=== PATIENT | male | born 1960 | race African-American/Black ===

== ENCOUNTER 2018-09-17 11:29 | Inpatient (IN) | payer MEDICAID ==
[~2018-09-17] VITALS: Ht 172.7 cm; Wt 85.0 kg
[2018-09-17 11:45] VITALS: BP 212/119
[2018-09-17 11:58] LABS: BASOPHILS 0.2 % (0-2); EOSINOPHILS 0.6 % (0-7); HEMATOCRIT 40.3 % (42.0-54.0); HEMOGLOBIN 13.7 g/dL (13.5-17.5); IMMATURE GRANULOCYTES 0.2 % (0-5); LYMPHOCYTES 23.7 % (15-50); MCH 28.3 pg (26.0-34.0); MCV 83.3 fL (80.0-100.0); MEAN PLATELET VOLUME 10.2 fL (7.4-10.4); MONOCYTES 7.8 % (2-11); NEUTROPHILS 67.5 % (40-80); PLATELET COUNT 285 10x3/uL (130-400); RBC 4.84 10x6/uL (4.20-6.10); RDW 13.6 % (11.5-14.5); WBC 12.6 10x3/uL (4.8-10.8)
[2018-09-17 12:08] LABS: APTT 28.1 SECONDS (22.8-39.4); INR 1.04 (0.85-1.17); PROTIME 13.1 SECONDS (11.6-15.0)
[2018-09-17 12:11] LABS: ALBUMIN 3.8 g/dL (3.4-5.0); ALKALINE PHOSPHATASE 89 U/L (46-116); ALT (SGPT) 41 U/L (10-68); BILIRUBIN - TOTAL 0.76 mg/dL (0.2-1.3); CALC OSMOLALITY 282 mosm/kg (275-300); CALCIUM 9.3 mg/dL (8.5-10.1); CARBON DIOXIDE 23.4 mmol/L (21.0-32.0); CHLORIDE - SERUM 103 mmol/L (98-107); CREATININE - SERUM 1.2 mg/dL (0.6-1.3); GLUCOSE 120 mg/dL (74-106); POTASSIUM - SERUM 3.2 mmol/L (3.5-5.1); PROTEIN - SERUM 8.1 g/dL (6.4-8.2); SODIUM 141 mmol/L (136-145); UREA NITROGEN 15 mg/dL (7-18); eGFR NON AFRICAN AMERICAN 66 mL/min (90-120)
[2018-09-17 12:29] LABS: CKMB 13.9 U/L (0.0-3.6); MAGNESIUM - SERUM 2.2 mg/dL (1.8-2.4)
[2018-09-17 12:33] LABS: CREATINE KINASE 4916 UL (21-232)
[2018-09-17 12:35] LABS: TROPONIN-I 0.601 ng/mL (0.000-0.060)
--- NOTE | 2018-09-17 12:35 | NUR ---
NOTIFIED BY LAB OF [facility] OF 0.601. TREATING PROVIDER NOTIFIED.
--- NOTE | 2018-09-17 14:30 | NUR ---
RECEIVED PT VIA W/C FROM ER AAOX4 DENIES ANY NEEDS OR DISCOMFORT AT THIS TIME RESP UNLABORED PRODUCTIVE COUGH NOTED THICK GREEN SPUTUM NOTED WILL CONTINUE TO MONITOR
[2018-09-17 14:43] VITALS: BMI 28.4
[2018-09-17 16:09] VITALS: Ht 172.7 cm; Wt 85.0 kg
--- NOTE | 2018-09-17 16:47 | MORECARE ---
CASE MANAGEMENT DISCHARGE SUMMARY PATIENT: REJI QUINTERO UNIT: [id number] ADM DATE: 09/17/18 AGE: 58 : 64 SEX: M ROOM/BED: D.2128 AUTHOR: MARIAM MARIEE PHYSICIAN: REFERRING PHYSICIAN: OLIVE MARTINO MD DATE OF SERVICE: 09/17/18 Discharge Plan Patient Name: REJI QUINTERO [facility] : 1960 Planned Disposition: Home Anticipated Discharge Date: 09/20/18 Discharge Date: Expected LOS: 3 Initial Reviewer: [email or web address] Initial Review Date: 09/17/2018 Generated: 09/17/18 5:46 pm DCPIA - Discharge Planning Initial Assessment Updated by [email or web address]: Ruth Buckley on 09/17/18 4:45 pm * Is the patient Alert and Oriented? Yes * How many steps to enter\exit or inside your home? None * PCP Does not have a PCP * Pharmacy [facility] * Preadmission Environment Home with Family * ADLs Independent * Equipment None * List name and contact numbers for known caregivers / representatives who currently or will assist patient after discharge: Monet Wooten - - [phone] * Verbal permission to speak to the caregivers and representatives has been obtained from the patient. Yes * Community resources currently utilized None * Additional services required to return to the preadmission environment? No * Can the patient safely return to the preadmission environment? Yes * Has this patient been hospitalized within the prior 30 days at any hospital? No Patient Name: REJI QUINTERO Page [id number] at 1647 All edits/amendments must be made on the electronic document DICTATION DATE: 09/17/181645 MERCHANDISING DIRECTOR: JAZMÍN 09/17/181645 RPT#: [id number] DC DATE: STATUS: ADM IN [facility] [address] [place] [address] END OF REPORT
--- NOTE | 2018-09-17 16:56 | MORECARE ---
CASE MANAGEMENT DISCHARGE SUMMARY PATIENT: REJI QUINTERO UNIT: [id number] ADM DATE: 09/17/18 AGE: 58 : 64 SEX: M ROOM/BED: D.6898 AUTHOR: JAYLENE,DOC PHYSICIAN: REFERRING PHYSICIAN: OLIVE MARTINO MD DATE OF SERVICE: 09/17/18 Discharge Plan Patient Name: REJI QUINTERO Facility: [facility]:[place] : 1960 Planned Disposition: Home Anticipated Discharge Date: 09/20/18 Discharge Date: Expected LOS: 3 Initial Reviewer: [email or web address] Initial Review Date: 09/17/2018 Generated: 09/17/18 5:56 pm DCP- Discharge Planning Updated by [email or web address]: Ruth Buckley on 09/17/18 3:[address] Patient Name: REJI QUINTERO Admission Status: ER Accout number: [id number] Admission Date: 09-17-2018 : 1960 Admission Diagnosis: Attending: OLIVE MARTINO Current LOS: 1 Anticipated DC Date: 09-20-2018 Planned Disposition: Home Primary Insurance: MEDICAID [place] Discharge Planning Comments: CM met with patient and his Monet to complete initial dc planning assessment. CM educated patient on the CM role and verbal consent given by patient to complete assessment. Patient lives at home with his independently. At discharge patient plans to return home and feels this is a safe discharge. CM discussed availability of home health, rehab services, and medical equipment. Patient denied known discharge needs at this time. CM provided patient handouts/resources for drug rehab programs. The patient stated "I just got to stop on my own". CM will continue to follow and will assist as needed with dc plans/needs. Technical Sales Support Specialist: Ruth Buckley RN, [facility] DCPIA - Discharge Planning Initial Assessment Updated by [email or web address]: Ruth Buckley on 09/17/18 4:45 pm * Is the patient Alert and Oriented? Yes * How many steps to enter\\exit or inside your home? None * PCP Does not have a PCP * Pharmacy [facility] * Preadmission Environment Home with Family * ADLs Independent * Equipment None * List name and contact numbers for known caregivers / representatives who currently or will assist patient after discharge: Monet Wooten - - [phone] * Verbal permission to speak to the caregivers and representatives has been obtained from the patient. Yes * Community resources currently utilized None * Additional services required to return to the preadmission environment? No * Can the patient safely return to the preadmission environment? Yes * Has this patient been hospitalized within the prior 30 days at any hospital? No Last DP export: 09/17/18 3:46 pm Patient Name: REJI QUINTERO Page [id number] at 1656 All edits/amendments must be made on the electronic document DICTATION DATE: 09/17/181655 [employer] OPERATOR: JAZMÍN 09/17/181655 RPT#: [id number] DC DATE: STATUS: ADM IN [facility] [address] [place] [address] END OF REPORT
[2018-09-17 17:06] VITALS: BP 203/108
--- NOTE | 2018-09-17 19:51 | NUR ---
RESUMED CARE OF PT, LYING IN BED RESPIRATIONS EVEN AND UNLABORED ON ROOM AIR. LEFT WRIST INFUSINS LR @ 125. 100 SR ON TELEMETRY. CALL LIGHT IN REACH. SEE NURSE ASSESSMENT.
[2018-09-17 20:00] VITALS: BP 132/75
[2018-09-18] VITALS: BP 133/74
[2018-09-18 04:56] LABS: BASOPHILS 0.1 % (0-2); EOSINOPHILS 1.5 % (0-7); HEMATOCRIT 36.4 % (42.0-54.0); HEMOGLOBIN 12.2 g/dL (13.5-17.5); IMMATURE GRANULOCYTES 0.2 % (0-5); LYMPHOCYTES 29.7 % (15-50); MCHC 33.5 g/dL (31.0-37.0); MCV 83.5 fL (80.0-100.0); MEAN PLATELET VOLUME 10.5 fL (7.4-10.4); MONOCYTES 9.6 % (2-11); NEUTROPHILS 58.9 % (40-80); PLATELET COUNT 270 10x3/uL (130-400); RBC 4.36 10x6/uL (4.20-6.10); RDW 13.3 % (11.5-14.5)
[2018-09-18 05:02] LABS: WBC 8.1 10x3/uL (4.8-10.8)
[2018-09-18 05:20] VITALS: BP 124/65
[2018-09-18 05:42] LABS: ALKALINE PHOSPHATASE 68 U/L (46-116); ALT (SGPT) 35 U/L (10-68); CALCIUM 8.2 mg/dL (8.5-10.1); CARBON DIOXIDE 23.6 mmol/L (21.0-32.0); CHLORIDE - SERUM 103 mmol/L (98-107); CREATININE - SERUM 1.1 mg/dL (0.6-1.3); GLUCOSE 77 mg/dL (74-106); MAGNESIUM - SERUM 1.9 mg/dL (1.8-2.4); PHOSPHOROUS 3.4 mg/dL (2.5-4.9); POTASSIUM - SERUM 3.5 mmol/L (3.5-5.1); PROTEIN - SERUM 6.7 g/dL (6.4-8.2); SODIUM 139 mmol/L (136-145); eGFR NON AFRICAN AMERICAN 73 mL/min (90-120)
[2018-09-18 05:43] LABS: CALC OSMOLALITY 275 mosm/kg (275-300); CKMB 9.1 U/L (0.0-3.6); CREATINE KINASE 2350 UL (21-232); UREA NITROGEN 11 mg/dL (7-18)
[2018-09-18 06:56] LABS: UDS - AMPHET POSITIVE QUAL (NEGATIVE); UDS - BARB NEGATIVE QUAL (NEGATIVE); UDS - BENZO NEGATIVE QUAL (NEGATIVE); UDS - COCAINE POSITIVE QUAL (NEGATIVE); UDS - OPIATE NEGATIVE QUAL (NEGATIVE); UDS - PCP NEGATIVE QUAL (NEGATIVE); UDS - THC NEGATIVE QUAL (NEGATIVE)
--- NOTE | 2018-09-18 07:30 | NUR ---
RECEIVED PT IN BED EYES CLOSED RESP UNLABORED NAD NOTED WILL CONTINUE TO MONITOR
[2018-09-18 08:29] LABS: APPEARANCE CLEAR (CLEAR); BILIRUBIN NEGATIVE (NEGATIVE); COLOR YELLOW (YELLOW); GLUCOSE NEGATIVE (NEGATIVE); KETONE SMALL mg/dL (NEGATIVE); NITRITE NEGATIVE (NEGATIVE); PROTEIN NEGATIVE (NEGATIVE); UROBILINOGEN NORMAL (NORMAL)
[2018-09-18 09:17] VITALS: BP 147/85
[2018-09-18 11:46] VITALS: BP 124/72
--- NOTE | 2018-09-18 15:10 | NUR ---
PT AGREED TO WEAR SCDs APPLIED AND WORKING AT THIS TIME
[2018-09-18 15:46] VITALS: BP 127/74
[2018-09-18 20:00] VITALS: BP 146/81
--- NOTE | 2018-09-18 20:57 | NUR ---
HS MEDS GIVEN WITH FRESH ICE WATER. PT DENIES PAIN OR NEEDS. BED LOW, CL IN REACH.
[2018-09-19] VITALS: BP 117/66
--- NOTE | 2018-09-19 03:42 | NUR ---
PT ASLEEP. RESP EVEN AND UNLABORED. FAMILY AT BEDSIDE. NO S/S OF DISTRESS. NS INFUSING 125 ORDERED. BEDLOW AND CALL LIGHT IN REACH. WILL CPOC
[2018-09-19 04:00] VITALS: BP 122/80
--- NOTE | 2018-09-19 04:22 | NUR ---
RESTING WITH EYES CLOSED, RESPERATOINS EVEN, NO S/S DISTRESS NOTED.
[2018-09-19 06:09] LABS: BASOPHILS 0.3 % (0-2); EOSINOPHILS 2.8 % (0-7); HEMATOCRIT 35.6 % (42.0-54.0); HEMOGLOBIN 11.7 g/dL (13.5-17.5); IMMATURE GRANULOCYTES 0.3 % (0-5); LYMPHOCYTES 34.2 % (15-50); MCH 27.7 pg (26.0-34.0); MCHC 32.9 g/dL (31.0-37.0); MCV 84.4 fL (80.0-100.0); MEAN PLATELET VOLUME 10.5 fL (7.4-10.4); MONOCYTES 10.4 % (2-11); PLATELET COUNT 264 10x3/uL (130-400); RBC 4.22 10x6/uL (4.20-6.10); RDW 13.3 % (11.5-14.5); WBC 7.2 10x3/uL (4.8-10.8)
[2018-09-19 06:42] LABS: ALBUMIN 2.9 g/dL (3.4-5.0); ALKALINE PHOSPHATASE 68 U/L (46-116); ALT (SGPT) 31 U/L (10-68); BILIRUBIN - TOTAL 0.39 mg/dL (0.2-1.3); CALCIUM 8.1 mg/dL (8.5-10.1); CARBON DIOXIDE 23.8 mmol/L (21.0-32.0); CHLORIDE - SERUM 106 mmol/L (98-107); CREATININE - SERUM 1.1 mg/dL (0.6-1.3); GLUCOSE 92 mg/dL (74-106); POTASSIUM - SERUM 4.1 mmol/L (3.5-5.1); PROTEIN - SERUM 6.5 g/dL (6.4-8.2); SODIUM 140 mmol/L (136-145); eGFR NON AFRICAN AMERICAN 73 mL/min (90-120)
[2018-09-19 06:43] LABS: CALC OSMOLALITY 279 mosm/kg (275-300); CKMB 4.3 U/L (0.0-3.6); CREATINE KINASE 1113 UL (21-232); UREA NITROGEN 14 mg/dL (7-18)
--- NOTE | 2018-09-19 07:10 | NUR ---
REPORT RECIEVED FROM BOARDING HOUSE MANAGER. PATIENT LAYING IN BED ON RT SIDE WITH EYES CLOSED AND BREATHING EVENLY. WILL CONTINUE WITH PLAN OF CARE. FAMILY MEMBER ASLEEP IN BEDSIDE CHAIR.
[2018-09-19 08:04] VITALS: BP 113/61
--- NOTE | 2018-09-19 10:34 | NUR ---
PATIENT ASSESMENT COMPLETED. PATIENT IS STABLE. VS ARE GOOD. WILL CONTINUE TO MONITOR.
[2018-09-19] MEDS ORDERED: HYDRALAZINE HCL25 MG PO (11:11)
[2018-09-19] MEDS ORDERED: LISINOPRIL10 MG PO (11:12)
[2018-09-19 12:31] VITALS: BP 117/56
--- NOTE | 2018-09-19 13:06 | NUR ---
PATIENT IS STABLE AND UNCHANGED. VS ARE GOOD. ORDERS RECIEVED FOR DC. DC INSTRUCTIONS GIVEN TO PATIENT AND SIGNIFICANT OTHER BOTH VERBALY AND WRITTEN. BOTH VERBALIZED UNDERSTANDING AND PATIENT SIGNED INSTRUCTIONS. IV DC WITHOUT DIFFICULTY. PATIENT OFFERED WC TO FRONT DOOR. PATIENT REFUSED AND AMBULATED WITH SIGNIFICANT OTHER OUT OF HOSPITAL.
--- NOTE | 2018-09-20 13:08 | MORECARE ---
CASE MANAGEMENT DISCHARGE SUMMARY PATIENT: REJI QUINTERO UNIT: [id number] ADM DATE: 09/17/18 AGE: 58 : 64 SEX: M ROOM/BED: D.8027 AUTHOR: JAYLENEDOC PHYSICIAN: REFERRING PHYSICIAN: OLIVE MARTINO MD DATE OF SERVICE: 09/20/18 Discharge Plan Patient Name: REJI QUINTERO Facility: [facility]:[place] : 1960 Planned Disposition: Home Anticipated Discharge Date: 09/19/18 Discharge Date: 09/19/2018 Expected LOS: 2 Initial Reviewer: [email or web address] Initial Review Date: 09/17/2018 Generated: 09/20/18 2:08 pm DCP- Discharge Planning Updated by [email or web address]: Ruth Buckley on 09/17/18 3:[address] Patient Name: REJI QUINTERO Admission Status: ER Accout number: [id number] Admission Date: 09-17-2018 : 1960 Admission Diagnosis: Attending: OLIVE MARTINO Current LOS: 1 Anticipated DC Date: 09-20-2018 Planned Disposition: Home Primary Insurance: MEDICAID [place] Discharge Planning Comments: CM met with patient and his Monet to complete initial dc planning assessment. CM educated patient on the CM role and verbal consent given by patient to complete assessment. Patient lives at home with his independently. At discharge patient plans to return home and feels this is a safe discharge. CM discussed availability of home health, rehab services, and medical equipment. Patient denied known discharge needs at this time. CM provided patient handouts/resources for drug rehab programs. The patient stated "I just got to stop on my own". CM will continue to follow and will assist as needed with dc plans/needs. Flask Carrier: Ruth Buckley RN, [facility] DCPIA - Discharge Planning Initial Assessment Updated by [email or web address]: Ruth Buckley on 09/17/18 4:45 pm * Is the patient Alert and Oriented? Yes * How many steps to enter\\exit or inside your home? None * PCP Does not have a PCP * Pharmacy [facility] * Preadmission Environment Home with Family * ADLs Independent * Equipment None * List name and contact numbers for known caregivers / representatives who currently or will assist patient after discharge: Monet Wooten - - [phone] * Verbal permission to speak to the caregivers and representatives has been obtained from the patient. Yes * Community resources currently utilized None * Additional services required to return to the preadmission environment? No * Can the patient safely return to the preadmission environment? Yes * Has this patient been hospitalized within the prior 30 days at any hospital? No Last DP export: 09/17/18 3:56 pm Patient Name: REJI QUINTERO Page [id number] at 1308 All edits/amendments must be made on the electronic document DICTATION DATE: 09/20/18 1308 WAREHOUSE SHIFT SUPERVISOR: JAZMÍN 09/20/18 1308 RPT#: [id number] DC DATE:09/19/18 STATUS: DIS IN [facility] [address] [place] [address] END OF REPORT
== END 2018-09-19 14:15 | disposition home or self-care (01) | DRG 558 ==
LOC: D.ER 11:29 → D.EDHOLD 13:29 → D.M2 13:29
PROVIDERS: Family Medicine; ADMIT Family Medicine
DX: M62.82 Rhabdomyolysis (principal); F17.213 Nicotine dependence, cigarettes, with withdrawal; I24.8 Other forms of acute ischemic heart disease; I16.0 Hypertensive urgency; R55 Syncope and collapse; F15.90 Other stimulant use, unspecified, uncomplicated; F14.90 Cocaine use, unspecified, uncomplicated; R00.0 Tachycardia, unspecified; J44.9 Chronic obstructive pulmonary disease, unspecified; I07.1 Rheumatic tricuspid insufficiency; Z72.89 Other problems related to lifestyle; Z86.718 Personal history of other venous thrombosis and embolism; Z86.711 Personal history of pulmonary embolism